=== PATIENT | female | born 1980 | race African-American/Black ===

== ENCOUNTER 2021-07-10 15:44 | Emergency (ER) | payer BC, OTHER ==
[~2021-07-10] VITALS: Ht 160 cm; Wt 82.7 kg
[2021-07-10 16:07] VITALS: BP 113/75
--- NOTE | 2021-07-10 16:13 | NUR ---
PT TO WAIT IN LOBBY, REQUESTING TO SIT OUTSIDE
--- NOTE | 2021-07-10 17:30 | NUR ---
Pt ambulated to bed 12.
--- NOTE | 2021-07-10 18:00 | NUR ---
41 yo F BIB self from Urgent Care referral c/o R calf pain x 4 days. Patient A&Ox4, ambulatory, reports seen at Urgent Care today and advised for ER evaluation to r/o blood clot. Patient reports no aggravating factors leading up to pain. Denies injury, trauma, falls, SOB, fever, chills. No redness, edema or warmth noted to R calf. Patient reports worsening pain x 1 day and states ambulating makes pain worse. Patient report 8/10, tender/intermittent, non-radiating pain. Denies any medications prior to arrival. Bed locked in lowest position, side rails x 1, call light in reach. PMH/Meds/Allergies: Denies Sx: Spinal infusion 2013
[2021-07-10] MEDS ORDERED: KETOROLAC 60 MG/2 ML VIAL IM ONE (18:35)
[2021-07-10] MEDS ORDERED: ACET-8386 PO (18:41)
[2021-07-10] MEDS ORDERED: IBUP-2213 PO (18:41)
[2021-07-10 18:50] VITALS: BP 119/82
--- NOTE | 2021-07-10 19:03 | NUR ---
Patient discharged with v/s stable. Written and verbal after care instructions given and explained. Patient alert, oriented and verbalized understanding of instructions. Ambulatory with steady gait. All questions addressed prior to discharge. ID band removed. Patient advised to follow up with PMD. Rx of Ibuprofen, Hydrocodone/Acetaminophen given. Patient educated on indication of medication including possible reaction and side effects. Opportunity to ask questions provided and answered.
== END 2021-07-10 19:03 | disposition home or self-care (01) ==
LOC: MED 15:44
DX: M79.661 Pain in right lower leg (principal); M79.10 Myalgia, unspecified site; F17.210 Nicotine dependence, cigarettes, uncomplicated
CPT/HCPCS: 93971; 96372; 99284; J1885